=== PATIENT | female | born 1985 | race Two or more races ===

== ENCOUNTER 2016-04-25 22:01 | Emergency (ER) | payer OTHER ==
[~2016-04-25] VITALS: Ht 157.5 cm; Wt 86.2 kg
--- NOTE | 2016-04-25 22:28 | PHYS DOC ---
Past Medical History Past Medical History: No Pertinent History Past Surgical History: Cholecystectomy Alcohol Use: Occasionally Drug Use: None Adult General Chief Complaint Chief Complaint: CHEST PAIN-NON CARDIAC NATURE HPI HPI Patient is a 30 year old female who presents with chest pain. Patient states that her chest pain started over 4 hours prior to arrival. Patient states that she had been having pain in her left shoulder starting earlier this morning that preceded her chest pain. Patient denies any history of similar symptoms. Agent denies any significant past medical history and denies any significant family history of heart attack in young family members. The patient states that she is currently on control pills. The patient states that her last menstrual period was in the middle of last month. Patient denies any associated symptoms with her chest pain currently. Patient states that the pain feels like pressure and is in the middle of her chest. Patient rates her pain currently as 9 out of 10. Patient has not taken any medications to help with her symptoms at this time. Review of Systems Review of Systems Constitutional: Denies fever or chills [] Eyes: Denies change in visual acuity, redness, or eye pain [] HENT: Denies nasal congestion or sore throat [] Respiratory: Denies cough or shortness of breath [] Cardiovascular: Chest pain, denies edema [] GI: Denies abdominal pain, nausea, vomiting, bloody stools or diarrhea [] : Denies dysuria or hematuria [] Musculoskeletal: Denies back pain or joint pain [] Integument: Denies rash or skin lesions [] Neurologic: Denies headache, focal weakness or sensory changes [] Endocrine: Denies polyuria or polydipsia [] Current Medications Current Medications Current Medications Medications (Trade) Dose Ordered Sig/Rizwan Start Time Stop Time Status Last Admin Dose Admin Aspirin (Children'S Aspirin) 324 mg 1X ONCE 04/25/16 22:30 04/25/16 22:31 DC 04/25/16 22:53 324 MG Lorazepam 0.5 mg 0.5 mg 1X ONCE 04/25/16 22:30 04/25/16 22:31 DC 04/25/16 22:55 0.5 MG Multi-Ingredient Mouthwash/Gargle (Gi Cocktail Single Dose) 15 ml 1X ONCE 04/25/16 22:30 04/25/16 22:31 DC 04/25/16 22:54 15 ML Ondansetron HCl (Zofran) 4 mg 1X ONCE 04/25/16 22:30 04/25/16 22:31 DC 04/25/16 22:54 4 MG Sodium Chloride (Iv Sodium Chloride 0.9% 1000ml Bag) 1,000 ml @ 1,000 mls/hr Q1H 04/25/16 22:30 04/25/16 23:29 DC 04/25/16 22:55 1,000 MLS/HR Allergies Allergies Allergies Coded Allergies Type Severity Reaction Last Updated Verified No Known Drug Allergies 04/25/16 No Physical Exam Physical Exam Constitutional: Alert, obese, afebrile, appears in mild discomfort. [] HENT: Normocephalic, atraumatic, bilateral external ears normal, oropharynx moist, no oral exudates, nose normal. [] Eyes: PERRLA, EOMI, conjunctiva normal, no discharge. [] Neck: Normal range of motion, no tenderness, supple, no stridor. [] Cardiovascular:Heart rate regular rhythm, no murmur [] Lungs & Thorax: Bilateral breath sounds clear to auscultation [] Abdomen: Bowel sounds normal, soft, no tenderness, no masses, no pulsatile masses. [] Skin: Warm, dry, no erythema, no rash. [] Back: No tenderness, no CVA tenderness. [] Extremities: No tenderness, no cyanosis, no clubbing, ROM intact, no edema. [] Neurologic: Alert and oriented X 3, normal motor function, normal sensory function, no focal deficits noted. [] Current Patient Data Vital Signs Vital Signs Date Time Temp Pulse Resp B/P Pulse Ox O2 Delivery O2 Flow Rate FiO2 04/25/16 22:09 98.8 102 16 113/61 100 Room Air 98.8 Lab Values Laboratory Tests Test 04/25/16 22:19 04/25/16 22:28 White Blood Count 7.6x10^3/uL (4.0-11.0) Red Blood Count 4.40x10^6/uL (3.50-5.40) Hemoglobin 13.1g/dL (12.0-15.5) Hematocrit 39.5% (36.0-47.0) Mean Corpuscular Volume 90fL (79-100) Mean Corpuscular Hemoglobin 30pg (25-35) Mean Corpuscular Hemoglobin Concent 33g/dL (31-37) Red Cell Distribution Width 13.6% (11.5-14.5) Platelet Count 240x10^3/uL (140-400) Neutrophils (%) (Auto) 61% (31-73) Lymphocytes (%) (Auto) 29% (24-48) Monocytes (%) (Auto) 7% (0-9) Eosinophils (%) (Auto) 1% (0-3) Basophils (%) (Auto) 2% (0-3) Neutrophils # (Auto) 4.6x10^3uL (1.8-7.7) Lymphocytes # (Auto) 2.2x10^3/uL (1.0-4.8) Monocytes # (Auto) 0.5x10^3/uL (0.0-1.1) Eosinophils # (Auto) 0.1x10^3/uL (0.0-0.7) Basophils # (Auto) 0.2x10^3/uL (0.0-0.2) D-Dimer (Sheila) < 0.27ug/mlFEU (0.00-0.50) Sodium Level 141mmol/L (136-145) Potassium Level 4.0mmol/L (3.5-5.1) Chloride Level 104mmol/L (98-107) Carbon Dioxide Level 25mmol/L (21-32) Anion Gap 12 (6-14) Blood Urea Nitrogen 9mg/dL (7-20) Creatinine 0.8mg/dL (0.6-1.0) Estimated GFR (Cockcroft-Gault) 84.2 Glucose Level 100mg/dL (70-99) H Calcium Level 9.0mg/dL (8.5-10.1) Magnesium Level 2.3mg/dL (1.8-2.4) Creatine Kinase 79U/L (26-192) Creatine Kinase MB (Mass) 0.5ng/mL (0.0-3.6) Creatine Kinase MB Relative Index 0.6% (0-4) Troponin I Quantitative < 0.017ng/mL (0.000-0.055) FZ-Gxz-Y-Type Natriuretic Peptide 98pg/mL (0-124) Lipase 146U/L (73-393) Urine Collection Type Unknown Urine Color Yellow Urine Clarity Clear Urine pH 6.0 Urine Specific [place] 1.015 Urine Protein Negativemg/dL (NEG-TRACE) Urine Glucose (UA) Negativemg/dL (NEG) Urine Ketones (Stick) Negativemg/dL (NEG) Urine Blood Large (NEG) Urine Nitrite Negative (NEG) Urine Bilirubin Negative (NEG) Urine Urobilinogen Dipstick 0.2mg/dL (0.2 mg/dL) Urine Leukocyte Esterase Negative (NEG) Urine RBC 0/HPF (0-2) Urine WBC 0/HPF (0-4) Urine Squamous Epithelial Cells Few/LPF Urine Bacteria 0/HPF (0-FEW) Urine Mucus Slight/LPF Urine Test Negative (NEG) Laboratory Tests 04/25/16 22:19 Laboratory Tests 04/25/16 22:19 EKG EKG interpreted by me: Heart rate 95, sinus rhythm, normal intervals, normal axis, no acute ST/T-wave abnormalities present[] Radiology/Procedures Radiology/Procedures One view AP chest x-ray interpreted by me: No infiltrate, no effusion, normal cardiac silhouette [] Course & Med Decision Making Course & Med Decision Making Pertinent Labs and Imaging studies reviewed. (See chart for details) Patient was given aspirin, GI cocktail, IV fluids, Zofran, and lorazepam. On reevaluation, patient's symptoms have improved at this time. The patient's cardiac enzymes which were taken over 4 hours after onset of symptoms are negative and patient's d-dimer is also negative ruling out myocardial infarction or pulmonary embolism respectively. The patient has no significant risk factors for coronary artery disease. This patient is at very low risk for any significant cardiac events and thus I feel is safe to go home at this time. I suspect that the patient's symptoms are likely GI in origin. The patient will be treated as outpatient with oral Pepcid and baby aspirin. I recommended follow -up in [address] Maldonado of cardiology for outpatient evaluation. Recommended return to the emergency department for any worsening symptoms. Patient voiced understanding and in agreement with treatment plan. Dragon Disclaimer Dragon Disclaimer This electronic medical record was generated, in whole or in part, using a voice recognition dictation system. Departure Departure Impression: Primary Impression: Chest pain Disposition: 01 HOME, SELF-CARE Condition: IMPROVED Referrals: NON,STAFF (PCP) Patient Instructions: Chest Pain (Nonspecific) Additional Instructions: Follow-up with Dr. Maldonado in 2 days for reevaluation and outpatient echocardiogram. Return to the emergency department for any worsening symptoms. Scripts Famotidine (Pepcid)20 Mg Udyhzw00 Mg PO BID #30 TAB Prov:ADEN FRIAS MD 04/25/16 Aspirin (Aspir 81)81 Mg Tablet.dr1 Tab PO DAILY #30 TAB Ref 0 Prov:ADEN FRIAS MD 04/25/16 Problem Qualifiers Primary Impression: Chest pain Chest pain type: unspecified Qualified Code: R07.9 - Chest pain, unspecified ADEN FRIAS MD Apr 25, 2016 22:28
[2016-04-25] MEDS ORDERED: ASPIRIN 81 MG TAB.CHEW PO ONE (22:30)
[2016-04-25] MEDS ORDERED: LORAZEPAM 2 MG/ML VIAL IV ONE (22:30)
[2016-04-25] MEDS ORDERED: LIDO:MAALOX:DONNATAL 1:1:1 15 ML SINGLE DOSE SWSW ONE (22:30)
[2016-04-25] MEDS ORDERED: IV NORMAL SALINE 1000ML BAG 1,000 ML IV SCH (22:30)
[2016-04-25] MEDS ORDERED: ONDANSETRON PF 4 MG/2 ML VIAL. IV ONE (22:30)
[2016-04-25 22:42] LABS: BILIRUBIN,URINE NEGATIVE (NEG); GLUCOSE,URINE NEGATIVE (NEG); NITRITE,URINE NEGATIVE (NEG); PROTEIN,URINE NEGATIVE (NEG-TRACE); UROBILINOGEN,URINE 0.2 mg/dL (0.2 mg/dL)
[2016-04-25 22:42] LABS: BASO # 0.2 x10^3/uL (0.0-0.2); BASO % 2 % (0-3); EOS % 1 % (0-3); HEMATOCRIT 39.5 % (36.0-47.0); HEMOGLOBIN 13.1 g/dL (12.0-15.5); LYMPH # 2.2 x10^3/uL (1.0-4.8); LYMPH % 29 % (24-48); MEAN CORPUSCULAR HEMOGLOBIN 30 pg (25-35); MEAN CORPUSCULAR HGB CONC 33 g/dL (31-37); MEAN CORPUSCULAR VOLUME 90 fL (79-100); MONO % 7 % (0-9); NEUT % 61 % (31-73); PLATELET COUNT 240 x10^3/uL (140-400); RED CELL DISTRIBUTION WIDTH 13.6 % (11.5-14.5); WHITE BLOOD COUNT 7.6 x10^3/uL (4.0-11.0)
[2016-04-25 22:48] LABS: NEG OBC UR NEG; POS OBC UR POS
[2016-04-25 22:50] LABS: BACTERIA,URINE 0 /HPF (0-FEW); RBC,URINE 0 /HPF (0-2); SQUAMOUS EPITHELIAL CELL,UR FEW /LPF; WBC,URINE 0 /HPF (0-4)
[2016-04-25 22:54] LABS: CREATININE 0.8 mg/dL (0.6-1.0); GFR 84.2
[2016-04-25 22:55] LABS: MAGNESIUM 2.3 mg/dL (1.8-2.4)
[2016-04-25 23:08] LABS: CKMB INDEX 0.6 % (0-4); CKMB MASS 0.5 ng/mL (0.0-3.6)
[2016-04-25] MEDS ORDERED: ASPI-482 PO (23:35)
[2016-04-25] MEDS ORDERED: FAMO-63 PO (23:35)
[2016-04-25 23:47] VITALS: BP 115/56
--- NOTE | 2016-04-26 07:04 | EKG ---
[facility] [address] [place] [address] Test Date: 2016-04-25 Test Time: 22:12:54 Pat Name: RENATE SAMPSON Department: Room: Gender: F Review Specialist: : 1985 Requested By: ADEN FRIAS Order Number: [id number] Reading MD: Bri Guerrier Measurements Intervals [place] Rate: 95 P: 56 [place]: 124 QRS: 32 QRSD: 80 T: 21 QT: 364 QTc: 461 Interpretive Statements SINUS RHYTHM NO SPECIFIC ECG ABNORMALITIES RI6.01 No previous ECG available for comparison Electronically Signed On 04-28-2016 0:24:58 [employer] ADVISOR by Bri Guerrier
--- NOTE | 2016-04-26 07:57 | RAD ---
Portable chest, 04/25/2016: History: Epigastric pain The heart size and pulmonary vascularity are normal. No pulmonary infiltrates are seen. There is no evidence of pleural fluid. IMPRESSION: No acute cardiopulmonary abnormality is detected.
== END 2016-04-26 | disposition home or self-care (01) ==
LOC: ER 22:01
DX: R07.9 Chest pain, unspecified (principal); M25.512 Pain in left shoulder; Z90.49 Acquired absence of other specified parts of digestive tract
CPT/HCPCS: 36415; 71010; 80048; 81001; 81025; 82553; 83690; 83735; 83880; 84484; 85027; 85379; 93005; 96361; 96374; 96375; 99285; J2060; J2405; J7030

== ENCOUNTER 2019-05-01 16:06 | Emergency (ER) | payer SELFPAY ==
[~2019-05-01] VITALS: Ht 157.5 cm; Wt 82.0 kg
[~2019-05-01 16:06] MED LIST: ASPI-482 PO; FAMO-63 PO
--- NOTE | 2019-05-01 16:32 | PHYS DOC ---
Past Medical History Past Medical History: No Pertinent History Past Surgical History: Cholecystectomy Alcohol Use: Occasionally Drug Use: None Adult General Chief Complaint Chief Complaint: DIZZY/LIGHT HEADED [facility] HPI Patient is a 33 year old female who presents with headache, nausea, diarrhea that started today. The patient states that she was in the hospital yesterday physical her mother. She's been having some body aches in her legs. Denies any other symptoms. She is unsure when her last period was because she states is irregular. Denies any medical history. Unsure whether she's been having a fever or not. Complete ROS were reviewed and found to be within normal limits, except as documented in the HPI Current Medications Current Medications Current Medications Medications (Trade) Dose Ordered Sig/Rizwan Start Time Stop Time Status Last Admin Dose Admin Acetaminophen (Tylenol) 1,000 mg 1X STAT 05/01/19 16:29 05/01/19 16:31 DC 05/01/19 17:13 1,000 MG Ondansetron HCl (Zofran) 4 mg 1X ONCE 05/01/19 16:30 05/01/19 16:31 DC 05/01/19 17:13 4 MG Sodium Chloride 1,000 ml @ 1,000 mls/hr 1X ONCE 05/01/19 16:30 05/01/19 17:29 DC 05/01/19 17:13 1,000 MLS/HR Allergies Allergies Allergies Coded Allergies Type Severity Reaction Last Updated Verified No Known Drug Allergies 04/25/16 No Physical Exam Physical Exam Constitutional: Well developed, well nourished, no acute distress, non-toxic appearance. [] HENT: Normocephalic, atraumatic, bilateral external ears normal, oropharynx m oist, no oral exudates, nose normal. [] Eyes: PERRLA, EOMI, conjunctiva normal, no discharge. [] Neck: Normal range of motion, no tenderness, supple, no stridor. [] Cardiovascular:Heart rate regular rhythm, no murmur [] Lungs & Thorax: Bilateral breath sounds clear to auscultation [] Abdomen: Bowel sounds normal, soft, no tenderness, no masses, no pulsatile masses. [] Skin: Warm, dry, no erythema, no rash. [] Extremities: No tenderness, no cyanosis, no clubbing, ROM intact, no edema. [] Neurologic: Alert and oriented X 3, normal motor function, normal sensory function, no focal deficits noted. [] Psychologic: Affect normal, judgement normal, mood normal. [] Current Patient Data Vital Signs Vital Signs Date Time Temp Pulse Resp B/P (MAP) Pulse Ox O2 Delivery O2 Flow Rate FiO2 05/01/19 17:28 81 13 99 05/01/19 16:22 98.0 141/64 (89) Room Air 98.0 Lab Values Laboratory Tests Test 05/01/19 16:25 05/01/19 16:45 05/01/19 16:49 Urine Collection Type Void Urine Color Yellow Urine Clarity Cloudy Urine pH 6.5 Urine Specific [place] 1.010 Urine Protein Negative mg/dL (NEG-TRACE) Urine Glucose (UA) Negative mg/dL (NEG) Urine Ketones (Stick) Negative mg/dL (NEG) Urine Blood Trace (NEG) Urine Nitrite Negative (NEG) Urine Bilirubin Negative (NEG) Urine Urobilinogen Dipstick 0.2 mg/dL (0.2 mg/dL) Urine Leukocyte Esterase Negative (NEG) Urine RBC 0 /HPF (0-2) Urine WBC Rare /HPF (0-4) Urine Squamous Epithelial Cells Many /LPF Urine Bacteria Few /HPF (0-FEW) Urine Yeast Present /HPF White Blood Count 9.4 x10^3/uL (4.0-11.0) Red Blood Count 4.28 x10^6/uL (3.50-5.40) Hemoglobin 13.0 g/dL (12.0-15.5) Hematocrit 39.2 % (36.0-47.0) Mean Corpuscular Volume 92 fL (79-100) Mean Corpuscular Hemoglobin 30 pg (25-35) Mean Corpuscular Hemoglobin Concent 33 g/dL (31-37) Red Cell Distribution Width 13.6 % (11.5-14.5) Platelet Count 282 x10^3/uL (140-400) Neutrophils (%) (Auto) 83 % (31-73) H Lymphocytes (%) (Auto) 12 % (24-48) L Monocytes (%) (Auto) 5 % (0-9) Eosinophils (%) (Auto) 0 % (0-3) Basophils (%) (Auto) 1 % (0-3) Neutrophils # (Auto) 7.8 x10^3/uL (1.8-7.7) H Lymphocytes # (Auto) 1.1 x10^3/uL (1.0-4.8) Monocytes # (Auto) 0.4 x10^3/uL (0.0-1.1) Eosinophils # (Auto) 0.0 x10^3/uL (0.0-0.7) Basophils # (Auto) 0.1 x10^3/uL (0.0-0.2) Sodium Level 143 mmol/L (136-145) Potassium Level 3.5 mmol/L (3.5-5.1) Chloride Level 104 mmol/L (98-107) Carbon Dioxide Level 28 mmol/L (21-32) Anion Gap 11 (6-14) Blood Urea Nitrogen 8 mg/dL (7-20) Creatinine 0.7 mg/dL (0.6-1.0) Estimated GFR (Cockcroft-Gault) 96.4 BUN/Creatinine Ratio 11 (6-20) Glucose Level 107 mg/dL (70-99) H Calcium Level 9.2 mg/dL (8.5-10.1) Total Bilirubin 0.3 mg/dL (0.2-1.0) Aspartate Amino Transferase (AST) 11 U/L (15-37) L Alanine Aminotransferase (ALT) 9 U/L (14-59) L Alkaline Phosphatase 53 U/L (46-116) Total Protein 7.4 g/dL (6.4-8.2) Albumin 3.9 g/dL (3.4-5.0) Albumin/Globulin Ratio 1.1 (1.0-1.7) Influenza Type A Antigen Negative (NEGATIVE) Influenza Type B Antigen Negative (NEGATIVE) POC Urine HCG, Qualitative Hcg negative (Negative) Laboratory Tests 05/01/19 16:45 Laboratory Tests 05/01/19 16:45 EKG EKG [] Radiology/Procedures Radiology/Procedures [] Course & Med Decision Making Course & Med Decision Making Pertinent Labs and Imaging studies reviewed. (See chart for details) Will get Labs, UA, Urine Preg, and give supportive care. Labs look unremarkable. Urine shows yeast. Will d/c home. Dragon Disclaimer Dragon Disclaimer This electronic medical record was generated, in whole or in part, using a voice recognition dictation system. Departure Departure Impression: Primary Impression: Yeast infection Disposition: HOME, SELF-CARE Condition: STABLE Referrals: NO PCP (PCP) Additional Instructions: Thank you for visiting [facility]. We appreciate you trusting us with your care. If any additional problems come up don't hesitate to return to visit us. Please follow up with your primary care provider so they can plan additional care if needed and know about the problem that you had. If symptoms worsen come back to the Emergency Department. Any concerning symptoms that start such as chest pain, shortness of air, weakness or numbness on one side of the body, running high fevers or any other concerning symptoms return to the ER. Scripts Ondansetron (ONDANSETRON ODT) 4 Mg Tab.rapdis 1 TAB PO PRN Q6-8HRS PRN for NAUSEA, #16 TAB Prov: SHANNON PINEDA APRN 05/01/19 Fluconazole (DIFLUCAN) 150 Mg Tablet 1 TAB PO ONCE, #1 TAB 1 Refill Prov: SHANNON PINEDA APRN 05/01/19 SHANNON PINEDA APRN May 01, 2019 16:32
[2019-05-01 16:56] LABS: BILIRUBIN,URINE NEGATIVE (NEG); CLARITY,URINE CLOUDY; COLOR,URINE YELLOW; NITRITE,URINE NEGATIVE (NEG); PH,URINE 6.5; PROTEIN,URINE NEGATIVE (NEG-TRACE); UROBILINOGEN,URINE 0.2 mg/dL (0.2 mg/dL)
[2019-05-01 16:58] LABS: BASO # 0.1 x10^3/uL (0.0-0.2); BASO % 1 % (0-3); EOS % 0 % (0-3); HEMATOCRIT 39.2 % (36.0-47.0); LYMPH # 1.1 x10^3/uL (1.0-4.8); LYMPH % 12 % (24-48); MEAN CORPUSCULAR HEMOGLOBIN 30 pg (25-35); MEAN CORPUSCULAR HGB CONC 33 g/dL (31-37); MEAN CORPUSCULAR VOLUME 92 fL (79-100); MONO # 0.4 x10^3/uL (0.0-1.1); MONO % 5 % (0-9); NEUT # 7.8 x10^3/uL (1.8-7.7); NEUT % 83 % (31-73); PLATELET COUNT 282 x10^3/uL (140-400); RED BLOOD COUNT 4.28 x10^6/uL (3.50-5.40); RED CELL DISTRIBUTION WIDTH 13.6 % (11.5-14.5); WHITE BLOOD COUNT 9.4 x10^3/uL (4.0-11.0)
[2019-05-01 17:03] LABS: RBC,URINE 0 /HPF (0-2)
[2019-05-01 17:04] LABS: CALCIUM 9.2 mg/dL (8.5-10.1); CREATININE 0.7 mg/dL (0.6-1.0); GFR 96.4; POTASSIUM 3.5 mmol/L (3.5-5.1)
[2019-05-01 17:04] LABS: BACTERIA,URINE FEW /HPF (0-FEW); SQUAMOUS EPITHELIAL CELL,UR MANY /LPF; WBC,URINE RARE /HPF (0-4); YEAST,URINE PRESENT /HPF
[2019-05-01 17:09] LABS: ALBUMIN 3.9 g/dL (3.4-5.0); ALBUMIN/GLOBULIN RATIO 1.1 (1.0-1.7); TOTAL BILIRUBIN 0.3 mg/dL (0.2-1.0); TOTAL PROTEIN 7.4 g/dL (6.4-8.2)
[2019-05-01] MEDS: ACETAMINOPHEN 500 MG TABLET PO STA (17:13)
[2019-05-01] MEDS: ONDANSETRON PF 4 MG/2 ML VIAL. IV ONE (17:13)
[2019-05-01] MEDS: IV NORMAL SALINE 1000ML BAG 1,000 ML IV ONE (17:13)
[2019-05-01 17:19] LABS: INFLUENZA A PATIENT NEGATIVE (NEGATIVE); INFLUENZA B PATIENT NEGATIVE (NEGATIVE)
[2019-05-01] MEDS ORDERED: FLUC150T PO (18:01)
[2019-05-01] MEDS ORDERED: ONDA4TAB12 PO (18:02)
[2019-05-01 18:58] VITALS: BP 113/60
== END 2019-05-01 19:05 | disposition home or self-care (01) ==
LOC: ER 16:06
DX: B37.89 Other sites of candidiasis (principal); R51 Headache; R11.0 Nausea; R19.7 Diarrhea, unspecified; Z90.49 Acquired absence of other specified parts of digestive tract
CPT/HCPCS: 36415; 80053; 81001; 81025; 85025; 87804; 96361; 96374; 99284; J2405; J7030

== ENCOUNTER 2019-09-26 17:58 | Emergency (ER) | payer SELFPAY ==
[~2019-09-26] VITALS: Ht 157.5 cm; Wt 77.0 kg
[~2019-09-26 17:58] MED LIST changes: +FLUC150T PO; +ONDA4TAB12 PO
[2019-09-26 18:39] VITALS: BP 146/104
--- NOTE | 2019-09-26 19:04 | RAD ---
EXAM: Chest, single view. HISTORY: Chest pain. COMPARISON: 04/25/2016 FINDINGS: A frontal view of the chest is obtained. There is no infiltrate, pleural effusion or pneumothorax. The heart is normal in size. IMPRESSION: No acute pulmonary finding. Electronically signed by: Charity Garcia MD (09/26/2019 7:01 PM) [facility]
--- NOTE | 2019-09-26 19:11 | PHYS DOC ---
Past Medical History Past Medical History: Anxiety (RACQUEL SMALL APRN) Past Surgical History: Cholecystectomy Additional Past Surgical Histo: D&C (RACQUEL SMALL APRN) Smoking Status: Never Smoker Alcohol Use: None Drug Use: None (RACQUEL SMALL APRN) General Adult EDM: Chief Complaint: ANXIETY/PANIC ATTACK HPI: HPI: Patient is a 34 year old female who presents with left-sided chest pressure and pain. She states nothing makes it worse or better. She states this started this morning. She stated that at times she feels like her heart is having palpitations or racing. She states she does have anxiety and panic attacks. She states she is not currently on any medications for that. She states she has no other past medical history and takes no other medications daily. She currently rates the pressure a 6 out of 10. (RACQUEL SMALL APRN) Review of Systems: Review of Systems: Cardiovascular: chest pain or denies edema. [] Psychiatric: Denies depression. + anxiety. [] (RACQUEL SMALL APRN) Heart Score: HEART Score for Chest Pain: HEART Score for Chest Pain Response (Comments) Value History Slighlty/Non-Suspicious 0 ECG Normal 0 Age < 45 0 Risk Factors 1 or 2 Risk Factors 1 Troponin < Normal Limit 0 Total 1 Risk Factors: Risk Factors: DM, Current or recent (<one month) smoker, HTN, HLP, family history of CAD, obesity. Risk Scores: Score 0 - 3: 2.5% MACE over next 6 weeks - Discharge Home Score 4 - 6: 20.3% MACE over next 6 weeks - Admit for Clinical Observation Score 7 - 10: 72.7% MACE over next 6 weeks - Early Invasive Strategies (RACQUEL SMALL BANANA EXPERT) Allergies: Allergies: Allergies Coded Allergies Type Severity Reaction Last Updated Verified No Known Drug Allergies 04/25/16 No (RACQUEL SMALL APRN) Physical Exam: PE: Constitutional: Well developed, well nourished, no acute distress, non-toxic appearance. [] HENT: Normocephalic, atraumatic, bilateral external ears normal, oropharynx moist, no oral exudates, nose normal. [] Eyes: PERRLA, EOMI, conjunctiva normal, no discharge. [] Neck: Normal range of motion, no tenderness, supple, no stridor. [] Cardiovascular:Heart rate regular rhythm, no murmur [] Lungs & Thorax: Bilateral breath sounds clear to auscultation [] Abdomen: Bowel sounds normal, soft, no tenderness, no masses, no pulsatile masses. [] Skin: Warm, dry, no erythema, no rash. [] Back: No tenderness, no CVA tenderness. [] Extremities: No tenderness, no cyanosis, no clubbing, ROM intact, no edema. [] Neurologic: Alert and oriented X 3, normal motor function, normal sensory function, no focal deficits noted. [] Psychologic: Affect normal, judgement normal, mood normal. Normal physical exam [] (RACQUEL SMALL APRN) Current Patient Data: Vital Signs: Vital Signs Date Time Temp Pulse Resp B/P (MAP) Pulse Ox O2 Delivery O2 Flow Rate FiO2 09/26/19 18:39 98.4 97 16 146/104 (118) 99 Room Air 98.4 (RACQUEL SMALL APRN) EKG: EKG: Read by Dr. Carballo at 1910 as sinus rhythm and no STEMI [] (RACQUEL SMALL APRN) Radiology/Procedures: Radiology/Procedures: [] Impression: [facility] [address] [place], [place] [id number] IMAGING REPORT Signed PATIENT: RENATE SAMPSON ACCOUNT: [id number] : 1985 LOCATION: ER AGE: 34 SEX: F EXAM STATUS: PRE ER ORD. PHYSICIAN: RACQUEL SMALL APRN REASON: chest discomfort PROCEDURE: PORTABLE CHEST 1V EXAM: Chest, single view. HISTORY: Chest pain. COMPARISON: 04/25/2016 FINDINGS: A frontal view of the chest is obtained. There is no infiltrate, pleural effusion or pneumothorax. The heart is normal in size. IMPRESSION: No acute pulmonary finding. Electronically signed by: Charity Nix MD (09/26/2019 7:01 PM) [facility] DICTATED and SIGNED BY: CHARITY NIX MD DATE: 09/26/191900 (RACQUEL SMALL APRN) Course & Med Decision Making: Course & Med Decision Making Pertinent Labs and Imaging studies reviewed. (See chart for details) Ambulatory with a steady gait. Skin pink warm and dry. Speaks in full clear sentences. No extremity edema. Denies nausea, vomiting, diarrhea, dizziness, headache, fever, cough, shortness of air, vision changes, LOC, numbness or tingling. PERC negative. Patient states she has been more stressed lately and has been feeling more anxious. Blood work unremarkable. EKG shows no STEMI. Patient only has a risk factor of obesity. Heart score is a 1. Patient is stable and in no distress. She will be discharged home I will give her a hydroxyzine as she is to follow-up with primary care physician. [] (RACQUEL SMALL APRN) Dragon Disclaimer: Dragon Disclaimer: This electronic medical record was generated, in whole or in part, using a voice recognition dictation system. (RACQUEL SMALL APRN) Departure Departure Impression: Primary Impression: Left chest pressure Additional Impression: Anxiety Disposition: 01 HOME, SELF-CARE Condition: STABLE Referrals: NO PCP (PCP) Patient Instructions: Anxiety and Panic Attacks Additional Instructions: Follow-up with a primary care provider soon as possible. Take medications as prescribed. If your chest pain gets worse and become very short of air call 911 or return to the emergency room. Scripts Hydroxyzine Hcl (HYDROXYZINE HCL) 25 Mg Tablet 1 TAB PO BID, #20 TAB Prov: RACQUEL SMALL APRN 09/26/19 Justicifation of Admission Dx: Justifications for Admission: Justification of Admission Dx: N/A (RACQUEL SMALL APRN) Attending Signature Attending Signature I have reviewed the PA/REPAIR TABLE OPERATOR's note and plan of care. I was available for consultation as needed during the patient's visit in the emergency department. I agree with the clinical impression, plan, and disposition. (SHANNON CARBALLO DO) RACQUEL SMALL APRN Sep 26, 2019 19:11 SHANNON CARBALLO DO Sep 27, 2019 01:19
[2019-09-26] MEDS ORDERED: ASPIRIN 325 MG TABLET PO ONE (19:15)
[2019-09-26 19:46] LABS: BASO # 0.1 x10^3/uL (0.0-0.2); BASO % 1 % (0-3); EOS % 0 % (0-3); HEMATOCRIT 41.2 % (36.0-47.0); HEMOGLOBIN 14.3 g/dL (12.0-15.5); LYMPH # 1.4 x10^3/uL (1.0-4.8); LYMPH % 15 % (24-48); MEAN CORPUSCULAR HEMOGLOBIN 32 pg (25-35); MEAN CORPUSCULAR HGB CONC 35 g/dL (31-37); MEAN CORPUSCULAR VOLUME 92 fL (79-100); MONO # 0.4 x10^3/uL (0.0-1.1); MONO % 4 % (0-9); NEUT # 7.6 x10^3/uL (1.8-7.7); NEUT % 80 % (31-73); PLATELET COUNT 254 x10^3/uL (140-400); RED BLOOD COUNT 4.51 x10^6/uL (3.50-5.40); RED CELL DISTRIBUTION WIDTH 13.4 % (11.5-14.5); WHITE BLOOD COUNT 9.5 x10^3/uL (4.0-11.0)
[2019-09-26 20:01] LABS: CREATININE 0.9 mg/dL (0.6-1.0); GFR 71.7; POTASSIUM 3.5 mmol/L (3.5-5.1)
[2019-09-26 20:06] LABS: ALBUMIN 4.3 g/dL (3.4-5.0); TOTAL BILIRUBIN 0.4 mg/dL (0.2-1.0); TOTAL PROTEIN 8.4 g/dL (6.4-8.2)
[2019-09-26] MEDS ORDERED: HYDR25TA PO (20:22)
--- NOTE | 2019-09-29 06:10 | EKG ---
[facility] [address] [place] [address] Test Date: 2019-09-26 Test Time: 19:10:47 Pat Name: RENATE SAMPSON Department: Room: Gender: F [place] Room Operator: : 1985 Requested By: RACQUEL SMALL Order Number: [id number] Reading MD: Measurements Intervals [place] Rate: 99 P: 71 [place]: 112 QRS: 42 QRSD: 78 T: 16 QT: 370 QTc: 481 Interpretive Statements SINUS RHYTHM QRS(T) CONTOUR ABNORMALITY CONSIDER ANTEROSEPTAL MYOCARDIAL DAMAGE PROLONGED QT POSSIBLY ABNORMAL ECG RI6.01 No previous ECG available for comparison
== END 2019-09-26 20:55 | disposition home or self-care (01) ==
LOC: ER 17:58
DX: R07.89 Other chest pain (principal); F41.9 Anxiety disorder, unspecified; Z90.49 Acquired absence of other specified parts of digestive tract; Z98.890 Other specified postprocedural states
CPT/HCPCS: 36415; 71045; 80053; 84484; 85025; 93005; 99285